=== PATIENT | male | born 1945 | race Caucasian/White ===

== ENCOUNTER → 2020-02-04 | Outpatient (REF) | payer MEDICARE, OTHER | LOC: M LAB REF 17:11 | PROVIDERS: ATTEND Internal Medicine Nephrology | DX: E11.22 Type 2 diabetes mellitus with diabetic chronic kidney disease (principal); N18.9 Chronic kidney disease, unspecified ==

== ENCOUNTER → 2021-01-18 | Outpatient (REF) | payer MEDICARE, BC ==
[2021-01-18 15:18] LABS: MAGNESIUM LEVEL 2.1 MG/DL (1.8-2.4); PROSTATIC SPECIFIC AG MONITOR 0.23 NG/ML (< 4.00)
== END ==
LOC: M LAB REF 13:35
PROVIDERS: ATTEND Internal Medicine Nephrology
DX: Z85.46 Personal history of malignant neoplasm of prostate (principal); N18.2 Chronic kidney disease, stage 2 (mild); E11.22 Type 2 diabetes mellitus with diabetic chronic kidney disease

== ENCOUNTER 2023-01-16 08:45 | Day surgery (SDC) | payer MEDICARE ==
[~2023-01-16] VITALS: Ht 157.5 cm; Wt 56.5 kg
[~2023-01-16 08:45] MED LIST: ALFU10TA3 PO; CILO50TA2 PO; DULA3PEN SC; EZET10TA21 PO; FAMO1TAB11 PO; HYDR-3911 PO; INSU100I24 SC; LANTINJ4 SC; MAGN400T33 PO; MECL-136 PO; METF500T13 PO; NOVOINJ3 SC; NS 1,000 ML IV ONE; PANT40TA29 PO; PRAV40TA2 PO; PREG50CA2 PO
[2023-01-16] MEDS ORDERED: INSULIN LISPRO (NovoLOG) PER UNIT SC PRN (09:45)
[2023-01-16] MEDS ORDERED: LIDOCAINE 2% 100MG/5ML SDV (FOR ANES.) As Ordered ONE (09:55)
[2023-01-16] MEDS ORDERED: GLYCOPYRROLATE INJ 0.2 MG/ML 2 ML VIAL As Ordered ONE (09:55)
[2023-01-16] MEDS ORDERED: propofoL 200 MG/20 ML VIAL As Ordered ONE (09:55)
[2023-01-16 11:04] VITALS: BP 185/84; TEMP 96.3; O2SAT 96
== END 2023-01-16 11:00 | disposition home or self-care (01) ==
LOC: M OPP 08:45
PROVIDERS: ATTEND Internal Medicine Gastroenterology
DX: K44.9 Diaphragmatic hernia without obstruction or gangrene (principal); K22.2 Esophageal obstruction; K31.A0 Gastric intestinal metaplasia, unspecified; Z79.02 Long term (current) use of antithrombotics/antiplatelets; Z79.1 Long term (current) use of non-steroidal anti-inflammatories (NSAID); Z79.4 Long term (current) use of insulin; Z79.82 Long term (current) use of aspirin; Z79.899 Other long term (current) drug therapy; Z88.9 Allergy status to unspecified drugs, medicaments and biological substances
CPT/HCPCS: 43239; 43249; 88305; J1815

== ENCOUNTER 2023-03-21 11:27 | Day surgery (SDC) | payer MEDICAID, MEDICARE ==
[~2023-03-21] VITALS: Ht 157.5 cm; Wt 54.0 kg
[~2023-03-21 11:27] MED LIST changes: +METO1TAB7 PO; -NS 1,000 ML IV ONE; -PREG50CA2 PO; +PREG50CA3 PO
[2023-03-21 13:22] VITALS: TEMP 98.3
[2023-03-21 13:41] VITALS: BP 180/82; O2SAT 100
== END 2023-03-21 13:51 | disposition home or self-care (01) ==
LOC: M OPP 11:27
PROVIDERS: ATTEND Internal Medicine Gastroenterology
DX: D12.2 Benign neoplasm of ascending colon (principal); D12.3 Benign neoplasm of transverse colon; K57.30 Diverticulosis of large intestine without perforation or abscess without bleeding; Z79.02 Long term (current) use of antithrombotics/antiplatelets; Z79.4 Long term (current) use of insulin; Z79.82 Long term (current) use of aspirin; Z79.899 Other long term (current) drug therapy; Z88.8 Allergy status to other drugs, medicaments and biological substances; Z87.891 Personal history of nicotine dependence

== ENCOUNTER 2023-04-07 21:22 | Emergency (ER) | payer MEDICARE, MEDICAID ==
[2023-04-07] MEDS ORDERED: GLUCAGON INJ 1MG VIAL IV STA (22:29)
[2023-04-07 22:54] LABS: BASO # 0.1 10^3/uL (0.0-0.2); BASO % 0.9 % (0.0-1.0); EOS # 0.2 10^3/uL (0.0-0.5); HEMATOCRIT 35.6 % (42.0-52.0); HEMOGLOBIN 11.4 g/dl (13.5-17.5); LYMPH # 1.7 10^3/uL (1.5-5.0); LYMPH % 22.8 % (24.0-44.0); MEAN CORPUSCULAR HEMOGLOBIN 26.8 pg (27.0-33.0); MEAN CORPUSCULAR VOLUME 83.8 fl (80.0-96.0); MONO # 0.7 10^3/uL (0.0-0.8); MONO % 9.3 % (2.0-8.0); NEUTROPHILS # 4.8 10^3/uL (1.5-8.5); NEUTROPHILS % 64.5 % (36.0-66.0); PLATELET COUNT, AUTOMATED 319 10^3/uL (150-450); RED BLOOD COUNT 4.25 10^6/uL (4.30-6.10); WHITE BLOOD COUNT 7.4 10^3/uL (4.0-10.0)
[2023-04-07 23:19] LABS: ALBUMIN 3.1 G/DL (3.2-5.2); BILIRUBIN,DIRECT 0.2 MG/DL (<0.4); BILIRUBIN,TOTAL 0.4 MG/DL (0.3-1.2); BLOOD UREA NITROGEN 18 MG/DL (9-23); CALCIUM LEVEL 9.1 MG/DL (8.3-10.6); CARBON DIOXIDE LEVEL 25 MMOL/L (20-31); CHLORIDE LEVEL 108 MMOL/L (98-107); CREATININE FOR GFR 0.58 MG/DL (0.70-1.30); GLOMERULAR FILTRATION RATE > 60.0 (>35); GLUCOSE, FASTING 252 MG/DL (74-106); POTASSIUM SERUM 4.5 MMOL/L (3.5-5.1); PREALBUMIN 13.4 MG/DL (10.0-40.0); SODIUM LEVEL 142 MMOL/L (136-145); TOTAL PROTEIN 6.4 G/DL (5.7-8.2)
[2023-04-07 23:25] LABS: RSV AMPLIFICATION NEGATIVE (NEGATIVE)
[2023-04-08 00:53] VITALS: BP 129/58; TEMP 97.8; O2SAT 96
== END 2023-04-08 00:58 | disposition short-term general hospital (02) ==
LOC: M ED 21:22
DX: K22.2 Esophageal obstruction (principal); I10 Essential (primary) hypertension; I25.2 Old myocardial infarction; Z85.46 Personal history of malignant neoplasm of prostate; Z79.899 Other long term (current) drug therapy; Z79.84 Long term (current) use of oral hypoglycemic drugs; Z79.4 Long term (current) use of insulin
CPT/HCPCS: 80048; 80076; 84134; 85025; 87631; 96374; 99284; J1610